=== PATIENT | male | born 1940 | race Caucasian/White ===

== ENCOUNTER → 2016-05-14 | Outpatient (CLI) | payer MEDICARE, BC ==
[~2016-05-14] MED LIST: ACET-2321 PO; DOCU-168 PO; MAGN400O4 PO; MINO100C2 PO; OXYC1TAB8 PO; SERT50TA12 PO; SOTA120T PO; WARF5TAB6 PO
--- NOTE | 2016-05-14 15:18 | DI ---
Indication: ITS.REASON: M81.0 OSTEOPOROSIS; M84.48XS PATHOLOGICAL FRACTURE PROCEDURE: MRI LUMBAR SPINE W/O CONTRAST: Encounter: Initial Comparison: MRI lumbar spine dated April 09, 2016 Technique: Multiplanar multisequence MR imaging of the lumbar spine was performed without contrast. Findings: Interval development of a new mild superior endplate compression fracture of L1 with less than 25% height loss. No retropulsion. Previously treated compression fractures at L2, L3 and L4 are noted. The L5 vertebral body appears unchanged. Conus medullaris terminates normally at L1. No new disk or facet disease of significance. Area of extravasated cement posterior to the L4 vertebra causing narrowing of the right lateral recess. Degenerative disk and facet changes at this level contributing to moderate right neural foraminal stenosis. Moderate bony neural foraminal stenosis on the right at L5-S1. Mild bilateral bony foraminal narrowing at L3-L4. Paraspinal soft tissues are unremarkable. Mild central canal narrowing at L3-L4. Impression: New mild superior endplate compression fracture of L1. .
== END ==
LOC: IMA 13:37
PROVIDERS: ATTEND Family Medicine Sports Medicine
DX: M48.56XA Collapsed vertebra, not elsewhere classified, lumbar region, initial encounter for fracture (principal); M81.0 Age-related osteoporosis without current pathological fracture